=== PATIENT | female | born 1980 | race Caucasian/White ===

== ENCOUNTER 2022-12-04 15:58 | Inpatient (IN) | payer OTHER ==
[~2022-12-04] VITALS: Ht 162.6 cm; Wt 59.0 kg
[2022-12-04 16:06] VITALS: BP_SYST 121; PULSE 128; RESP 20; TEMP 98.2; O2SAT 91
[2022-12-04] MEDS ORDERED: NACL 0.9% 2,000 ML IV ONE (17:15)
[2022-12-04 17:54] LABS: MEAN CORPUSCULAR HEMOGLOBIN 25 pg (27-31); MEAN CORPUSCULAR HGB CONC 31 % (32-36); MEAN CORPUSCULAR VOLUME 80 fL (79.0-98.0); PLATELET COUNT (AUTO) 399 K/uL (130-430); RED BLOOD CELL COUNT(AUTO) 2.62 MIL/uL (4.2-6.2); RED CELL DISTRIBUTION WIDTH 18.8 % (9.0-15.0); WHITE BLOOD COUNT (AUTO) 8.9 K/uL (4.8-10.8)
[2022-12-04 18:00] LABS: HEMATOCRIT 20.8 % (36-48)
[2022-12-04] MEDS ORDERED: cefTRIAXone 1 GM IVPB PREMIX 50 ML IV ONE (18:00)
[2022-12-04 18:01] LABS: HEMOGLOBIN 6.5 g/dL (12.0-16.0)
[2022-12-04 18:12] LABS: ANION GAP 5 (5-15); CALCIUM 7.9 mg/dL (8.4-11.0); CHLORIDE 101 mmol/L (98-107); GFR AFRICAN AMERICAN 173 mL/min (>90); GLUCOSE 202 mg/dL (70-99); UREA NITROGEN, BLOOD 19 mg/dL (8-21)
[2022-12-04 18:17] LABS: PROTHROMBIN TIME 10.7 SECS (9.5-12.5)
[2022-12-04 18:27] LABS: BAND % (MANUAL) 12 % (0-6); BASOPHILS % (MANUAL) 0 % (0-2); EOSINOPHILS % (MANUAL) 4 % (0-7); LYMPHOCYTES % (MANUAL) 9 % (20-46); MONOCYTES % (MANUAL) 7 % (0-11)
[2022-12-04 18:32] LABS: ALANINE AMINOTRANSFERASE 11 U/L (12-78); ALBUMIN 1.5 g/dL (3.4-4.8); ASPARTATE AMINOTRANSFERASE 13 U/L (10-37); TOTAL BILIRUBIN 0.2 mg/dL (0.0-1.0)
[2022-12-04] MEDS ORDERED: ASPIRIN 325 MG TABLET (ECOTRIN) PO ONE (18:45)
[2022-12-04 23:30] VITALS: BP_SYST 100; PULSE 85; RESP 18; TEMP 97.3; O2SAT 100
[2022-12-05] VITALS (10 sets, daily range): BP systolic 100–148; PULSE 66–97; RESP 16–19; TEMP 97.3–97.8; O2SAT 98–100
[2022-12-05] MEDS ORDERED: INSULIN LISPRO SLIDING SCALE 100 UNITS/ML, 3 ML VIAL (humaLOG) SUBCUT PRN (02:45)
[2022-12-05 06:27] LABS: BILIRUBIN,URINE NEGATIVE (NEGATIVE); COLOR,URINE YELLOW (YELLOW); GLUCOSE,URINE NEGATIVE (NEGATIVE); KETONES,URINE NEGATIVE (NEGATIVE); LEUKOCYTE ESTERASE ,URINE NEGATIVE (NEGATIVE); NITRITE, URINE NEGATIVE (NEGATIVE); PROTEIN URINE NEGATIVE (NEGATIVE)
[2022-12-05 06:41] LABS: BLOOD, URINE TRACE (NEGATIVE)
[2022-12-05 06:42] LABS: CLARITY/URINE SLIGHTLY CLOUDY (CLEAR)
[2022-12-05 06:43] LABS: BACTERIA,URINE None Seen /HPF (None Seen); WBC,URINE 0-3 /HPF (0-3)
[2022-12-05 07:18] LABS: BASOPHILS % (AUTO) 0.2 % (0.0-2.0); EOSINOPHILS # (AUTO) 0.1 K/uL (0.0-0.4); EOSINOPHILS % (AUTO) 1.6 % (0.0-4.0); HEMATOCRIT 25.9 % (36-48); HEMOGLOBIN 8.1 g/dL (12.0-16.0); LYMPHOCYTES # (AUTO) 1.5 K/uL (1.0-5.5); LYMPHOCYTES % (AUTO) 16.7 % (20.5-51.5); MEAN CORPUSCULAR HEMOGLOBIN 25 pg (27-31); MEAN CORPUSCULAR HGB CONC 31 % (32-36); MEAN CORPUSCULAR VOLUME 79 fL (79.0-98.0); MONOCYTES # (AUTO) 0.5 K/uL (0.0-1.0); MONOCYTES % (AUTO) 5.1 % (1.7-9.3); NEUTROPHILS # (AUTO) 6.8 K/uL (1.8-7.7); NEUTROPHILS % (AUTO) 76.4 % (40.0-70.0); PLATELET COUNT (AUTO) 385 K/uL (130-430); RED BLOOD CELL COUNT(AUTO) 3.27 MIL/uL (4.2-6.2); RED CELL DISTRIBUTION WIDTH 18.4 % (9.0-15.0); WHITE BLOOD COUNT (AUTO) 8.9 K/uL (4.8-10.8)
[2022-12-05 07:47] LABS: ALBUMIN 1.5 g/dL (3.4-4.8); CALCIUM 8.5 mg/dL (8.4-11.0); CREATININE 0.43 mg/dL (0.55-1.30); TOTAL BILIRUBIN 0.2 mg/dL (0.0-1.0)
[2022-12-05] MEDS ORDERED: HYDROcodone/ACETAMIN 10-325 MG TAB GT PRN (10:30)
[2022-12-05] MEDS ORDERED: NALOXONE HCL 0.4 MG/ML AMP (NARCAN) IVP PRN ×2 (10:30)
[2022-12-05] MEDS ORDERED: ONDANSETRON HCL 4 MG/2 ML VIAL IVP PRN (10:30)
[2022-12-05] MEDS ORDERED: ACETAMINOPHEN 325 MG TABLET GT PRN (10:30)
[2022-12-05] MEDS ORDERED: LORazepam 2 MG/ML VIAL IVP PRN (10:30)
[2022-12-05] MEDS: INSULIN LISPRO SLIDING SCALE 100 UNITS/ML, 3 ML VIAL (humaLOG) SUBCUT PRN ×3 (12:10→22:03)
[2022-12-05] MEDS: HYDROcodone/ACETAMIN 5-325 MG TAB (NORCO/ VICODIN) GT PRN ×2 (17:54→18:21)
[2022-12-06 05:02] LABS: BASOPHILS % (AUTO) 0.3 % (0.0-2.0); EOSINOPHILS # (AUTO) 0.2 K/uL (0.0-0.4); EOSINOPHILS % (AUTO) 3.8 % (0.0-4.0); HEMATOCRIT 25.3 % (36-48); LYMPHOCYTES # (AUTO) 1.5 K/uL (1.0-5.5); LYMPHOCYTES % (AUTO) 27.1 % (20.5-51.5); MEAN CORPUSCULAR HEMOGLOBIN 25 pg (27-31); MEAN CORPUSCULAR HGB CONC 32 % (32-36); MEAN CORPUSCULAR VOLUME 79 fL (79.0-98.0); MONOCYTES # (AUTO) 0.5 K/uL (0.0-1.0); MONOCYTES % (AUTO) 8.6 % (1.7-9.3); NEUTROPHILS # (AUTO) 3.4 K/uL (1.8-7.7); NEUTROPHILS % (AUTO) 60.2 % (40.0-70.0); PLATELET COUNT (AUTO) 393 K/uL (130-430); RED BLOOD CELL COUNT(AUTO) 3.19 MIL/uL (4.2-6.2); RED CELL DISTRIBUTION WIDTH 18.9 % (9.0-15.0); WHITE BLOOD COUNT (AUTO) 5.7 K/uL (4.8-10.8)
[2022-12-06 05:24] LABS: CALCIUM 8.6 mg/dL (8.4-11.0); CREATININE 0.5 mg/dL (0.55-1.30); PHOSPHORUS 4.6 mg/dL (2.7-4.5)
[2022-12-06 05:49] LABS: TOTAL IRON BIND. CAPACITY 190 ug/dL (250-450)
[2022-12-06] MEDS: INSULIN LISPRO SLIDING SCALE 100 UNITS/ML, 3 ML VIAL (humaLOG) SUBCUT PRN ×3 (05:57→19:12)
[2022-12-06] MEDS ORDERED: BALSAM PERU/CASTOR OIL 56.7 GM OINT...G. TP SCH (09:00)
[2022-12-06 09:02] VITALS: BP_SYST 114; PULSE 90; RESP 26; TEMP 96.5; O2SAT 100
[2022-12-06 09:04] VITALS: O2SAT 100
[2022-12-06] MEDS: HYDROcodone/ACETAMIN 5-325 MG TAB (NORCO/ VICODIN) GT PRN (09:58)
[2022-12-06 12:40] VITALS: BP_SYST 116; PULSE 92; RESP 22; TEMP 97.2; O2SAT 97
[2022-12-06 16:53] VITALS: BP_SYST 115; PULSE 74; RESP 22; TEMP 97; O2SAT 97
[2022-12-06 17:21] VITALS: BP_SYST 115; BP_SYST 147; PULSE 80; RESP 16; RESP 22; TEMP 97; TEMP 97.8; O2SAT 99
[2022-12-06 20:49] VITALS: BP_SYST 117; PULSE 72; RESP 18; TEMP 97.2; O2SAT 98
== END 2022-12-06 22:15 | DRG 663 ==
LOC: SED 15:58 → STU 21:59
PROVIDERS: ADMIT Preventive Medicine Preventive Medicine/Occupational Environmental Medicine; ATTEND Preventive Medicine Preventive Medicine/Occupational Environmental Medicine
PROC: 30233N1 Transfusion of Nonautologous Red Blood Cells into Peripheral Vein, Percutaneous Approach (ICD-10-PCS; principal; 2022-12-04)
DX: D62 Acute posthemorrhagic anemia (principal); E43 Unspecified severe protein-calorie malnutrition; I21.A1 Myocardial infarction type 2; J96.10 Chronic respiratory failure, unspecified whether with hypoxia or hypercapnia; E88.09 Other disorders of plasma-protein metabolism, not elsewhere classified; E83.51 Hypocalcemia; Z93.0 Tracheostomy status; Z99.81 Dependence on supplemental oxygen; E86.0 Dehydration; D63.8 Anemia in other chronic diseases classified elsewhere; I69.351 Hemiplegia and hemiparesis following cerebral infarction affecting right dominant side; E11.9 Type 2 diabetes mellitus without complications; E78.5 Hyperlipidemia, unspecified; I10 Essential (primary) hypertension; R13.10 Dysphagia, unspecified; Z93.1 Gastrostomy status; I69.320 Aphasia following cerebral infarction; Z68.22 Body mass index [BMI] 22.0-22.9, adult
CPT/HCPCS: 36415; 71045; 80048; 80053; 81000; 82272; 82728; 83540; 83550; 83605; 83735; 84100; 84484; 85007; 85025; 85027; 85610-TC; 86886; 86900; 86901; 86920; 87040; 87081; 87086; 87101; 93005; 93306; 94760; 96361; 96365; 99285; G0378; J0696; J7030; P9021

== ENCOUNTER 2023-01-06 07:41 | Emergency (ER) | payer OTHER ==
[~2023-01-06] VITALS: Ht 160 cm; Wt 59.0 kg
[2023-01-06 07:45] VITALS: BP_SYST 112; PULSE 98; RESP 16; TEMP 98; O2SAT 93
--- NOTE | 2023-01-06 07:52 | NUR ---
Patient to ER bed 3 to gown for evaluation. Side rails up. Report given to [place] [facility].
--- NOTE | 2023-01-06 07:56 | NUR ---
In ER bed 3 Sent for Pulled GT
--- NOTE | 2023-01-06 08:16 | NUR ---
DR NICOLAS REPLACED GTUBE AND XRAYS ORDERED
[2023-01-06] MEDS ORDERED: GASTROGRAFIN 120 ML ONE (08:24)
--- NOTE | 2023-01-06 08:27 | NUR ---
XRAYS BEING DONE AT BEDSIDE.
--- NOTE | 2023-01-06 11:05 | NUR ---
Stable. VSS. GT replaced and verified in place. Awaiting transpo
--- NOTE | 2023-01-06 11:21 | NUR ---
has seen and Dc'd home To exit
[2023-01-06 13:00] VITALS: BP_SYST 124; PULSE 70; RESP 18; TEMP 97.4; O2SAT 100
--- NOTE | 2023-01-06 13:02 | NUR ---
Stable VSS GT Patent Has been Dc'd Call placed to prison Spoke to Hung ROCHE arrived to transport. Ambulated to exit
== END 2023-01-06 13:02 | disposition home or self-care (01) ==
LOC: SED 07:41
DX: K94.23 Gastrostomy malfunction (principal); I10 Essential (primary) hypertension; E11.9 Type 2 diabetes mellitus without complications; E78.5 Hyperlipidemia, unspecified; Z91.013 Allergy to seafood; Z79.899 Other long term (current) drug therapy
CPT/HCPCS: 99284; 43762; 74240; Q9963

== ENCOUNTER 2023-11-19 17:03 | Inpatient (IN) | payer OTHER ==
[~2023-11-19] VITALS: Ht 167.6 cm; Wt 65.8 kg
[2023-11-19 17:19] VITALS: BP_SYST 129; PULSE 107; RESP 15; TEMP 98.5; O2SAT 93
[2023-11-19] MEDS ORDERED: ZINC220T3 GT (17:43)
[2023-11-19] MEDS ORDERED: MIDO10TA GT (17:43)
[2023-11-19] MEDS ORDERED: PSYL3.4P6 GT (17:43)
[2023-11-19] MEDS ORDERED: GLUC1AUT IM (17:43)
[2023-11-19] MEDS ORDERED: CYCL10TA25 GT (17:43)
[2023-11-19] MEDS ORDERED: COLL100 GT (17:43)
[2023-11-19] MEDS ORDERED: LIP40 GT (17:43)
[2023-11-19] MEDS ORDERED: ASCO500T19 GT (17:43)
[2023-11-19] MEDS ORDERED: FAMO40SU5 GT (17:43)
[2023-11-19] MEDS ORDERED: MULT-976 GT (17:43)
[2023-11-19] MEDS ORDERED: ACET325T39 GT (17:43)
[2023-11-19] MEDS ORDERED: LOVI40 SQ (17:43)
[2023-11-19] MEDS ORDERED: CRAN450T9 GT (17:43)
[2023-11-19] MEDS ORDERED: INSU100V26 SQ (17:43)
[2023-11-19] MEDS ORDERED: DULR10 PR (17:43)
[2023-11-19] MEDS ORDERED: ERTA1VIA IV (17:43)
[2023-11-19 17:56] LABS: BASOPHILS % (AUTO) 0.4 % (0.0-2.0); EOSINOPHILS # (AUTO) 0.3 K/uL (0.0-0.4); EOSINOPHILS % (AUTO) 4.7 % (0.0-4.0); HEMATOCRIT 34.5 % (36-48); HEMOGLOBIN 11.5 g/dL (12.0-16.0); LYMPHOCYTES # (AUTO) 2.6 K/uL (1.0-5.5); MEAN CORPUSCULAR HEMOGLOBIN 31 pg (27-31); MEAN CORPUSCULAR HGB CONC 33 % (32-36); MEAN CORPUSCULAR VOLUME 93 fL (79.0-98.0); MONOCYTES # (AUTO) 0.5 K/uL (0.0-1.0); MONOCYTES % (AUTO) 8.3 % (1.7-9.3); NEUTROPHILS # (AUTO) 2.5 K/uL (1.8-7.7); NEUTROPHILS % (AUTO) 42.6 % (40.0-70.0); PLATELET COUNT (AUTO) 221 K/uL (130-430); RED BLOOD CELL COUNT(AUTO) 3.71 MIL/uL (4.2-6.2); RED CELL DISTRIBUTION WIDTH 16.9 % (9.0-15.0); WHITE BLOOD COUNT (AUTO) 5.9 K/uL (4.8-10.8)
[2023-11-19 18:11] LABS: ALANINE AMINOTRANSFERASE 46 U/L (12-78); ANION GAP 12 (5-15); ASPARTATE AMINOTRANSFERASE 44 U/L (10-37); CALCIUM 8.9 mg/dL (8.4-11.0); CARBON DIOXIDE 26 mmol/L (23-29); CHLORIDE 104 mmol/L (98-107); CREATININE 0.82 mg/dL (0.55-1.30); GFR AFRICAN AMERICAN 97 mL/min (>90); GLUCOSE 330 mg/dL (74-106); POTASSIUM 3.8 mmol/L (3.5-5.1); SODIUM SERUM 142 mmol/L (136-145); TOTAL BILIRUBIN 0.3 mg/dL (0.0-1.0); TOTAL PROTEIN, SERUM 9.1 g/dL (6.4-8.3); UREA NITROGEN, BLOOD 30 mg/dL (8-21)
[2023-11-19 18:13] LABS: GFR NON AFRICAN-AMERICAN 80 mL/min (>90)
[2023-11-19 18:14] LABS: BILIRUBIN,URINE NEGATIVE (NEGATIVE); BLOOD, URINE NEGATIVE (NEGATIVE); CLARITY/URINE CLEAR (CLEAR); COLOR,URINE YELLOW (YELLOW); GLUCOSE,URINE NEGATIVE (NEGATIVE); KETONES,URINE NEGATIVE (NEGATIVE); LEUKOCYTE ESTERASE ,URINE NEGATIVE (NEGATIVE); NITRITE, URINE NEGATIVE (NEGATIVE); PROTEIN URINE 1+ (NEGATIVE)
[2023-11-19 18:15] LABS: BILIRUBIN,DIRECT 0.1 mg/dL (0.0-0.3)
[2023-11-19 18:41] LABS: BACTERIA,URINE None Seen /HPF (None Seen)
[2023-11-19] MEDS: levETIRAcetam 1,000 MG in NS 90 ML IV ONE (19:48)
[2023-11-19 20:25] VITALS: BP_SYST 121; PULSE 80; RESP 18; TEMP 96.4; O2SAT 97
[2023-11-19] MEDS ORDERED: ACETAMINOPHEN 325 MG TABLET PO PRN ×2 (21:00→21:15)
[2023-11-19] MEDS ORDERED: MORPHINE 2 MG/ML INJ. SYRINGE IVP PRN ×2 (21:00)
[2023-11-19] MEDS ORDERED: POTASSIUM CHLORIDE 20 MEQ TABLET.ER PO PRN (21:00)
[2023-11-19] MEDS ORDERED: ZOLPIDEM TARTRATE 5 MG TABLET PO PRN (21:00)
[2023-11-19] MEDS ORDERED: MAGNESIUM SULFATE 50 ML IV PRN (21:00)
[2023-11-19] MEDS ORDERED: MUPIROCIN 2% TOPICAL OINTMENT 22 GM NS PRN (21:00)
[2023-11-19] MEDS ORDERED: ONDANSETRON HCL 4 MG/2 ML VIAL IVP PRN (21:00)
[2023-11-19] MEDS ORDERED: NALOXONE HCL 2 MG/2 ML SYR IVP PRN ×2 (21:00)
[2023-11-19] MEDS ORDERED: LORazepam 2 MG/ML VIAL IVP PRN (21:00)
[2023-11-19] MEDS ORDERED: DOCUSATE SODIUM 100 MG CAPSULE PO PRN (21:00)
[2023-11-19] MEDS: NACL 0.9% 1,000 ML IV SCH (21:22)
[2023-11-19 22:22] LABS: BILIRUBIN,URINE NEGATIVE (NEGATIVE); BLOOD, URINE NEGATIVE (NEGATIVE); CLARITY/URINE CLEAR (CLEAR); COLOR,URINE YELLOW (YELLOW); GLUCOSE,URINE TRACE (NEGATIVE); KETONES,URINE NEGATIVE (NEGATIVE); LEUKOCYTE ESTERASE ,URINE NEGATIVE (NEGATIVE); NITRITE, URINE NEGATIVE (NEGATIVE); PROTEIN URINE TRACE (NEGATIVE); UROBILINOGEN,URINE 0.2 (0.2-1.0)
[2023-11-19 22:45] LABS: BACTERIA,URINE RARE /HPF (None Seen)
[2023-11-20 04:57] LABS: BASOPHILS % (AUTO) 0.4 % (0.0-2.0); EOSINOPHILS # (AUTO) 0.2 K/uL (0.0-0.4); EOSINOPHILS % (AUTO) 3.8 % (0.0-4.0); HEMATOCRIT 33.6 % (36-48); HEMOGLOBIN 11.3 g/dL (12.0-16.0); LYMPHOCYTES # (AUTO) 2.4 K/uL (1.0-5.5); LYMPHOCYTES % (AUTO) 38.6 % (20.5-51.5); MEAN CORPUSCULAR HEMOGLOBIN 32 pg (27-31); MEAN CORPUSCULAR HGB CONC 34 % (32-36); MEAN CORPUSCULAR VOLUME 94 fL (79.0-98.0); MONOCYTES # (AUTO) 0.6 K/uL (0.0-1.0); MONOCYTES % (AUTO) 8.8 % (1.7-9.3); NEUTROPHILS # (AUTO) 3.1 K/uL (1.8-7.7); NEUTROPHILS % (AUTO) 48.4 % (40.0-70.0); PLATELET COUNT (AUTO) 219 K/uL (130-430); RED BLOOD CELL COUNT(AUTO) 3.58 MIL/uL (4.2-6.2); RED CELL DISTRIBUTION WIDTH 16.5 % (9.0-15.0); WHITE BLOOD COUNT (AUTO) 6.3 K/uL (4.8-10.8)
[2023-11-20 06:46] LABS: CREATININE 0.65 mg/dL (0.55-1.30); POTASSIUM 3.6 mmol/L (3.5-5.1)
[2023-11-20] MEDS ORDERED: DEXTROSE 50% JECT 50 ML DISP.SYRIN IVP PRN (09:00)
[2023-11-20] MEDS: ATORVASTATIN 20 MG TABLET GT SCH (10:17)
[2023-11-20] MEDS: LevETIRAcetam 500 MG/5 ML UDC ORAL LIQUID GT SCH (10:18)
[2023-11-20] MEDS: ENOXAPARIN SODIUM 40 MG/0.4 ML SYRINGE SQ SCH (10:22)
[2023-11-20 11:04] LABS: INR 1.1 (0.8-1.2); PROTHROMBIN TIME 10.9 SECS (9.5-12.5)
[2023-11-20] MEDS ORDERED: INSULIN Lispro 100 UNITS/ML, 3 ML VIAL (humaLOG) ONE (11:53)
[2023-11-20] MEDS: INSULIN LISPRO SLIDING SCALE 100 UNITS/ML, 3 ML VIAL (humaLOG) SUBCUT PRN (11:58)
[2023-11-20] MEDS ORDERED: DIATR MEGLU/DIATRIZ SOD 30 ML SOLUTION PO ONE (17:45)
[2023-11-20 20:25] VITALS: BP_SYST 121; PULSE 80; RESP 18; TEMP 96.4; O2SAT 97
[2023-11-20 23:51] VITALS: BP_SYST 106; PULSE 101; RESP 16; TEMP 96.5; O2SAT 97
[2023-11-21 06:28] LABS: BASOPHILS % (AUTO) 0.3 % (0.0-2.0); EOSINOPHILS # (AUTO) 0.2 K/uL (0.0-0.4); EOSINOPHILS % (AUTO) 3.5 % (0.0-4.0); HEMATOCRIT 32.2 % (36-48); HEMOGLOBIN 10.5 g/dL (12.0-16.0); LYMPHOCYTES % (AUTO) 36.9 % (20.5-51.5); MEAN CORPUSCULAR HEMOGLOBIN 31 pg (27-31); MEAN CORPUSCULAR HGB CONC 33 % (32-36); MEAN CORPUSCULAR VOLUME 96 fL (79.0-98.0); MONOCYTES # (AUTO) 0.4 K/uL (0.0-1.0); NEUTROPHILS # (AUTO) 2.9 K/uL (1.8-7.7); NEUTROPHILS % (AUTO) 52.3 % (40.0-70.0); PLATELET COUNT (AUTO) 233 K/uL (130-430); RED BLOOD CELL COUNT(AUTO) 3.37 MIL/uL (4.2-6.2); WHITE BLOOD COUNT (AUTO) 5.5 K/uL (4.8-10.8)
[2023-11-21 06:29] LABS: CALCIUM 8.9 mg/dL (8.4-11.0); CREATININE 0.69 mg/dL (0.55-1.30); POTASSIUM 3.6 mmol/L (3.5-5.1)
[2023-11-21 08:06] VITALS: BP_SYST 91; PULSE 76; RESP 17; TEMP 97.2; O2SAT 93
[2023-11-21 08:14] VITALS: O2SAT 93
[2023-11-21 11:08] VITALS: BP_SYST 96; PULSE 87; RESP 16; TEMP 97.6; O2SAT 99
[2023-11-21 16:23] VITALS: BP_SYST 99; PULSE 74; RESP 16; TEMP 97.1; O2SAT 96
[2023-11-21 20:15] VITALS: O2SAT 98
[2023-11-21] MEDS: INSULIN GLARGINE 100 UNITS/ML, 10 ML VIAL SUBCUT SCH (23:15)
[2023-11-22 00:50] VITALS: BP_SYST 98; PULSE 71; RESP 17; TEMP 97.7; O2SAT 98
[2023-11-22 06:51] LABS: BASOPHILS % (AUTO) 0.3 % (0.0-2.0); EOSINOPHILS # (AUTO) 0.1 K/uL (0.0-0.4); EOSINOPHILS % (AUTO) 3.2 % (0.0-4.0); HEMATOCRIT 29.7 % (36-48); HEMOGLOBIN 9.7 g/dL (12.0-16.0); LYMPHOCYTES % (AUTO) 44.5 % (20.5-51.5); MEAN CORPUSCULAR HEMOGLOBIN 31 pg (27-31); MEAN CORPUSCULAR HGB CONC 33 % (32-36); MEAN CORPUSCULAR VOLUME 95 fL (79.0-98.0); MONOCYTES # (AUTO) 0.4 K/uL (0.0-1.0); MONOCYTES % (AUTO) 8.4 % (1.7-9.3); NEUTROPHILS # (AUTO) 1.9 K/uL (1.8-7.7); NEUTROPHILS % (AUTO) 43.6 % (40.0-70.0); PLATELET COUNT (AUTO) 230 K/uL (130-430); RED BLOOD CELL COUNT(AUTO) 3.12 MIL/uL (4.2-6.2); RED CELL DISTRIBUTION WIDTH 16.9 % (9.0-15.0); WHITE BLOOD COUNT (AUTO) 4.4 K/uL (4.8-10.8)
[2023-11-22 07:05] LABS: CALCIUM 8.7 mg/dL (8.4-11.0); CREATININE 0.62 mg/dL (0.55-1.30)
[2023-11-22 07:52] VITALS: BP_SYST 105; PULSE 74; RESP 17; TEMP 97.1; O2SAT 93
[2023-11-22 08:05] VITALS: O2SAT 93
[2023-11-22 12:08] VITALS: BP_SYST 100; PULSE 79; RESP 16; TEMP 97; O2SAT 94
[2023-11-22 16:16] VITALS: BP_SYST 117; PULSE 78; RESP 17; TEMP 97.2; O2SAT 94
[2023-11-22 20:15] VITALS: BP_SYST 131; PULSE 70; RESP 18; TEMP 97.3; O2SAT 96
[2023-11-23 00:24] VITALS: BP_SYST 103; PULSE 82; RESP 15; TEMP 96; O2SAT 94
[2023-11-23 05:22] LABS: BASOPHILS % (AUTO) 0.3 % (0.0-2.0); EOSINOPHILS # (AUTO) 0.1 K/uL (0.0-0.4); EOSINOPHILS % (AUTO) 2.5 % (0.0-4.0); HEMATOCRIT 30.4 % (36-48); LYMPHOCYTES # (AUTO) 1.7 K/uL (1.0-5.5); LYMPHOCYTES % (AUTO) 39.6 % (20.5-51.5); MEAN CORPUSCULAR HEMOGLOBIN 31 pg (27-31); MEAN CORPUSCULAR HGB CONC 33 % (32-36); MEAN CORPUSCULAR VOLUME 94 fL (79.0-98.0); MONOCYTES # (AUTO) 0.2 K/uL (0.0-1.0); MONOCYTES % (AUTO) 5.6 % (1.7-9.3); NEUTROPHILS # (AUTO) 2.2 K/uL (1.8-7.7); PLATELET COUNT (AUTO) 247 K/uL (130-430); RED BLOOD CELL COUNT(AUTO) 3.24 MIL/uL (4.2-6.2); RED CELL DISTRIBUTION WIDTH 16.8 % (9.0-15.0); WHITE BLOOD COUNT (AUTO) 4.2 K/uL (4.8-10.8)
[2023-11-23 05:53] LABS: CALCIUM 8.7 mg/dL (8.4-11.0); CREATININE 0.6 mg/dL (0.55-1.30); POTASSIUM 3.6 mmol/L (3.5-5.1)
[2023-11-23 08:10] VITALS: BP_SYST 137; PULSE 73; RESP 17; TEMP 97; O2SAT 97
[2023-11-23 10:00] VITALS: O2SAT 97
[2023-11-23 12:37] VITALS: BP_SYST 117; BP_SYST 98; PULSE 81; RESP 17; RESP 18; TEMP 98.4; O2SAT 95
[2023-11-23 14:21] VITALS: BP_SYST 102; PULSE 80; RESP 17; TEMP 98.2; O2SAT 96
== END 2023-11-23 16:20 | DRG 53 ==
LOC: SED 17:03 → STU 19:46
PROVIDERS: ADMIT General Practice; ATTEND General Practice
PROC: 4A00X4Z Measurement of Central Nervous Electrical Activity, External Approach (ICD-10-PCS; principal; 2023-11-21)
DX: R56.9 Unspecified convulsions (principal); R53.2 Functional quadriplegia; G90.9 Disorder of the autonomic nervous system, unspecified; E44.1 Mild protein-calorie malnutrition; E11.43 Type 2 diabetes mellitus with diabetic autonomic (poly)neuropathy; E11.65 Type 2 diabetes mellitus with hyperglycemia; E86.0 Dehydration; G81.91 Hemiplegia, unspecified affecting right dominant side; E78.5 Hyperlipidemia, unspecified; I10 Essential (primary) hypertension; Z74.01 Bed confinement status; Z86.711 Personal history of pulmonary embolism; Z87.820 Personal history of traumatic brain injury; Z93.1 Gastrostomy status; Z91.013 Allergy to seafood; Z68.23 Body mass index [BMI] 23.0-23.9, adult
CPT/HCPCS: 36415; 70450-TC; 71045; 74018; 80048; 80076; 81000; 81001; 81015; 82948; 83037; 83735; 84484; 85025; 85610; 85730; 87081; 93005; 95816; 96365; 99285; G0378; J1650; J1815; J1953; Q9964